=== PATIENT | male | born 1950 | race Caucasian/White ===

== ENCOUNTER 2017-04-13 06:07 | Day surgery (SDC) | payer OTHER, MEDICARE ==
[2017-04-13] MEDS ORDERED: ceFAZolin 1 GM in NORMAL SALINE MINI-BAG+ 100 ML IV ONE (06:11)
[2017-04-13 06:40] VITALS: TEMP 97.5
[2017-04-13] MEDS ORDERED: LIDOCAINE HCL/PF 1% 30 ML VIAL ONE (06:57)
[2017-04-13] MEDS ORDERED: ceFAZolin 1 GM/10 ML VIAL ONE (06:57)
[2017-04-13] MEDS ORDERED: ROPIVACAINE HCL 0.5% 30 ML ONE (06:57)
[2017-04-13] MEDS ORDERED: SCOPOLAMINE 1.5 MG PATCH TD ONE ×3 (06:59→08:18)
[2017-04-13] MEDS ORDERED: LIDOCAINE HCL 1% 20 ML VIAL SUBCUT ONE ×3 (06:59→08:18)
[2017-04-13] MEDS ORDERED: MIDAZOLAM HCL 2 MG/2 ML SYR IV ONE ×2 (06:59→07:00)
[2017-04-13] MEDS ORDERED: LACTATED RINGERS 1,000 ML IV SCH ×4 (07:00→09:00)
[2017-04-13] MEDS ORDERED: FAMOTIDINE IN SALINE, ISO-OSM 20 MG/50 ML PIGGYBACK IV SCH (07:00)
[2017-04-13] MEDS ORDERED: MIDAZOLAM HCL 2 MG/2 ML VIAL ONE (07:17)
[2017-04-13] MEDS ORDERED: FENTANYL 100 MCG/2 ML VIAL ONE (07:39)
[2017-04-13] MEDS ORDERED: DEXAMETHASONE 4 MG/ML VIAL ONE (07:39)
[2017-04-13] MEDS ORDERED: ONDANSETRON HCL 4 MG/2 ML VIAL ONE (07:39)
[2017-04-13] MEDS ORDERED: SUCCINYLCHOLINE CHLORIDE 200 MG/10 ML VIAL ONE (07:39)
[2017-04-13] MEDS ORDERED: ROCURONIUM BROMIDE 50 MG/5 ML VIAL IV ONE (07:39)
[2017-04-13] MEDS ORDERED: FENTANYL 100 MCG/2 ML VIAL IV PRN (08:18)
[2017-04-13] MEDS ORDERED: MORPHINE SULFATE 10 MG/ML SYR IV PRN (08:18)
[2017-04-13] MEDS ORDERED: ONDANSETRON HCL 4 MG/2 ML VIAL IV PRN (08:18)
[2017-04-13] MEDS ORDERED: HYDROmorphone HCL 1 MG/ML SYR IV PRN (08:18)
[2017-04-13 11:32] VITALS: BP 141/88; PULSE 55; RESP 16; O2SAT 94
--- NOTE | 2017-04-13 14:28 | OPERATIVE REPORT ---
DATE OF SURGERY: 04/13/17 SURGEON: Phoenix Godwin DO ANESTHESIA: General. PREOPERATIVE DIAGNOSIS: Right shoulder rotator cuff tear, SLAP tear and acromioclavicular joint osteoarthritis. POSTOPERATIVE DIAGNOSIS: Right shoulder rotator cuff tear, SLAP tear and acromioclavicular joint osteoarthritis. OPERATION PERFORMED: Right shoulder arthroscopic rotator cuff repair, SLAP repair, arthroscopic subacromial decompression and distal clavicle excision. ESTIMATED BLOOD LOSS: Minimal. COMPLICATIONS: None. PROCEDURE NOTE: The patient was brought to the operating room suite and after administration of general anesthesia, he was positioned in the lateral decubitus position with the right upper extremity isolated, prepped and draped in sterile fashion. All bony prominences were well padded and there were 4 pillows around the legs and in between the knees. All incision sites were injected with 0.25% bupivacaine with epinephrine prior to incision. A posterior portal was created first and the anterior portal was created under visualization after first inserting a spinal needle. There was also a lateral and superior portal created for instrumentation purposes. Diagnostic arthroscopy was performed in the glenohumeral joint demonstrating grade I chondromalacia of the glenoid with a labral tear that extended from the 12:30 position to the 2 oclock position on the glenoid superiorly and anteriorly. The biceps tendon was intact. There was some fraying peripherally of the labrum which was debrided with an arthroscopic shaver. Two Arthrex suture tacks were inserted into the glenoid rim, after first debriding the rim with a shaver and with a rasp. A bird beak was utilized to penetrate the labrum at its proximal or deep 1/3 for the 2 sutures which were tied down utilizing a knot pusher and a [place] knot, followed by alternating half hitches. The labral repair was secure. Attention was then drawn towards the subacromial space. Instrumentation was entered into this area, followed by debridement of the subacromial and Subdeltoid bursa. The patient had a significant amount of fraying on the superior aspect of his rotator cuff and then also inside the glenohumeral joint there was some fraying in that same area. Utilizing a radiofrequency device, a soft tissue portion of the subacromial area was debrided, followed by a high speed bur, which took down the undersurface of the acromial spur. The patient had a significant amount of arthroses at the acromioclavicular joint, as there was no capsule in this area, and osteophytes were noted on the distal end of the clavicle. The frayed portion of the rotator cuff was probed and was noted to be very thinned out in this area, therefore, it was debrided down to a stable appearing tissue which made a small hole in the rotator cuff which communicated through to the frayed aspect on the interior part of the glenohumeral joint. One Arthrex swivel lock anchor was utilized with a horizontal mattress configuration of the suture tape to repair this small rotator cuff tear. The swivel lock was a 4.75 mm. The arthritic portion of the distal end of the clavicle with its bone spurs or osteophytes was shaved down also with a high speed bur leaving the superior ligament intact. The shoulder was drained of all arthroscopic fluid and the portal sites were injected again with some 0.25% bupivacaine with epinephrine. The portals were closed with 3-0 nylon in simple interrupted sutures. They were dressed with bacitracin ointment, Xeroform, 4x4s, ABDs, and Medipore tape, followed by application of a Cryo-Cuff and a shoulder immobilizer. The patient was transferred from the operating room suite to the recovery room in stable condition. JOSE
--- NOTE | 2017-04-17 11:13 | PREOPERATIVE H&P ---
History of Present Illness (Phoenix Godwin DO; 04/09/2017 1:08 PM) The patient is a 66 year old male. Patient presents for his preoperative visit prior to his rotator cuff surgery. Allergies (Cheyenne Rankin, RN; 04/09/2017 11:45 AM) Penicillins (Amoxicillin, Augmentin, Unasyn...) Hives Diclofenac *ANALGESICS - ANTI-INFLAMMATORY* Anger/Anxiety 08/2016 Family History (Cheyenne Rankin, RN; 04/09/2017 11:45 AM) Mother DM No Significant Family Ocular History Brother CVA, DM @ 60 Father @ 80's of Heart, BPH Social History (Cheyenne Rankin, RN; 04/09/2017 11:45 AM) Tobacco use Never smoker. Alcohol use Drinks Socially. Medication History (Cheyenne Rankin, RN; 04/09/2017 11:45 AM) Ranitidine HCl (75MG Tablet, 1 (one) Oral as needed, Taken starting 03/01/2013 ) Active. (entry data only) Cialis (20MG Tablet, 1 (one) Oral daily prn prior to intercourse, Taken starting 03/31/2017) Active. Imodium A-D (2MG Tablet, Oral three times daily, as needed) Active. Saw [place] (intermittently) Specific dose unknown - Active. Tylenol Extra Strength (500MG Tablet, Oral as needed) Active. Ibuprofen (200MG Capsule, 1 capsule Oral three times daily, as needed) Discontinued. Vitamin E (400UNIT Tablet, 2 Oral intermittently) Discontinued. Medications Reconciled Review of Systems (Cheyenne Ranikn RN; 04/09/2017 11:55 AM) General Not Present- Chills and Fever. Skin Not Present- Erythema, Skin Color Changes and Skin Problems. HEENT Not Present- Sleep Apnea. Neck Not Present- Neck Pain. Respiratory Not Present- Cough and Shortness of Breath. Cardiovascular Not Present- Chest Pain, Difficulty Breathing On Exertion, Fainting and Leg Pain and/or Swelling. Gastrointestinal Not Present- Abdominal Pain, Nausea and Vomiting. Male Genitourinary Not Present- Painful Urination and Urethral Discharge. Musculoskeletal Not Present- Decreased Range of Motion, Joint Pain, Joint Stiffness, Joint Swelling, Muscle Pain and Muscle Weakness. Neurological Not Present- Dizziness, Focal Neurological Symptoms, Numbness in extremities, Trouble walking and Weakness. Psychiatric Not Present- Anorexia, Anxiety and Depression. Endocrine Not Present- Weight Loss. Hematology Not Present- Bleeding Problems, DVT and Easy Bruising. Vitals (Cheyenne Rankin RN; 04/09/2017 11:44 AM) 04/09/2017 11:43 AM Weight: 169.3 lb Height: 71.75in Body Surface Area: 1.98 m Body Mass Index: 23.12 kg/m Temp.: 98.5F Pulse: 64 (Regular) Resp.: 16 (Unlabored) BP: 116/76 (Sitting, Left Arm, Standard) Assessment & Plan (Phoenix Godwin DO; 04/09/2017 1:09 PM) Right rotator cuff tear (M75.101) Impression: After educating the patient regarding treatment options with their associated risks and benefits, the patient elected to proceed with surgical treatment of the injury/pathology with RIGHT SHOULDER ARTHROSCOPY. The risks and benefits of the specific procedure were explained and all questions and concerns were addressed and answered. Post operative rehabilitation requirements and expectations for optimal outcome were reviewed and the patient confirmed understanding these and committed to compliance. All questions answered. Biceps tendinitis, right (M75.21) Signed by Phoenix Godwin DO (04/09/2017 1:12 PM) There are no interval changes. Signed Phoenix Godwin DO 04/13/2017. JOSE
== END 2017-04-13 11:45 | disposition home or self-care (01) ==
LOC: SDS 06:07
PROVIDERS: ATTEND Orthopaedic Surgery
DX: M75.111 Incomplete rotator cuff tear or rupture of right shoulder, not specified as traumatic (principal); M19.011 Primary osteoarthritis, right shoulder; S43.431A Superior glenoid labrum lesion of right shoulder, initial encounter
CPT/HCPCS: J0690; J2250; J2405; J2795